=== PATIENT | male | born 1960 ===

== ENCOUNTER 2022-05-19 06:39 | Day surgery (SDC) | payer OTHER ==
[~2022-05-19] VITALS: Ht 170.2 cm; Wt 96.3 kg
[~2022-05-19 06:39] MED LIST: AMLO10 PO; ASPI81CH PO; JARDIANCE25 MG PO; LISI20 PO; METF500 PO
--- NOTE | 2022-05-19 07:36 | NUR ---
History, Chart, Medications and Allergies reviewed before start of procedure. Patient confirms NPO status and agrees with scheduled surgery. Pre-Op teaching done. Pt verbalizes understanding. Patient States Post-Procedure ride home has been arranged. PT [place] [facility].
--- NOTE | 2022-05-19 08:31 | NUR ---
Pre-Op teaching done. Pt verbalizes understanding. Surgical site prepped with 2% Chlorhexidine cloth wipe. Patient States Post-Procedure ride home has been arranged.PT PREPPED AND READY FOR SURGERY.
--- NOTE | 2022-05-19 10:04 | NUR ---
REPORT RECEIVED FROM LEN WALKER RN. VSS. PT REPORTS DULL 1/10 PAIN ON HIS LEFT SIDE. PT DRESSING C/D/I WITHOUT DRAINAGE, SWELLING, OR REDNESS WITH OCCLUSIVE DRESSING IN PLACE. PT REQUESTING PO FLUIDS AND TOLERATING WELL. PT DENIES NAUSEA AT THIS TIME.
--- NOTE | 2022-05-19 10:42 | NUR ---
Patient up to Ambulate independently. Gait steady. Discharge instructions reviewed with patient. Patient verbalizes understanding. Copy given to patient to take home. Dressing to procedure site clean, dry, intact with no visible drainage, swelling, erythema or bruising noted. Patient States Post-Procedure ride home has been arranged. Discharged via wheelchair to private car for ride home. PT BELONGINGS RETURNED TO PT.
== END 2022-05-19 22:45 | disposition home or self-care (01) ==
LOC: ORSCMMR 06:39 → ORD 08:30 → ORSCMMR 22:45
PROVIDERS: Surgery
PROC: 0WB80ZX Excision of Chest Wall, Open Approach, Diagnostic (ICD-10-PCS; principal; 2022-05-19 08:30)
DX: D17.1 Benign lipomatous neoplasm of skin and subcutaneous tissue of trunk (principal); I10 Essential (primary) hypertension; E11.9 Type 2 diabetes mellitus without complications; Z79.84 Long term (current) use of oral hypoglycemic drugs; Z79.899 Other long term (current) drug therapy; Z79.82 Long term (current) use of aspirin
CPT/HCPCS: 82947; 88304; J0690; J1100; J1885; J2250; J2405; J2704; J3010; J7120